=== PATIENT | female | born 1935 | race Caucasian/White ===

== ENCOUNTER 2018-09-06 17:53 | Emergency (ER) | payer MEDICARE, SELFPAY ==
[2018-09-06 17:54] VITALS: BP 155/68; PULSE 70; RESP 16; TEMP 36.4; O2SAT 93; BMI 40.4
--- NOTE | 2018-09-06 18:50 | RAD_ITS ---
STUDY: X-RAY - LEFT HAND REASON FOR EXAM: Female, 82 years old. Fall and laceration of thumb TECHNIQUE: 3 view(s) of the hand. COMPARISON: None. FINDINGS: No fractures are seen. No dislocations. No radiodense foreign bodies. Diffuse osteoarthritis. This includes severe first carpometacarpal and first metacarpophalangeal osteoarthritis with subluxation. RAD/Hand Min 3 Views IMPRESSION: No acute osseous injury is evident. No radiodense foreign body is seen. Electronically Signed: Alphonse Jack MD at 19:08 EDT Tel , Service support ,
[2018-09-06] MEDS: Diphth,Pertuss(Acell),Tet Vac 0.5 ML Vial IM (18:53)
[2018-09-06 20:17] VITALS: BP 145/65; PULSE 64; RESP 15; O2SAT 97
--- NOTE | 2018-09-06 20:17 | ED.DEP ---
ED Disposition - Plan for ED Patient: Instructions: LACERATION, Hand Referrals: Marion Elizabeth MD [Primary Care Provider] -
--- NOTE | 2018-09-06 20:21 | ED.VISSUMM ---
- ER Visit Summary Date of Service: 09/06/18 Chief Complaint: Left hand laceration History of Present Illness: The patient is a 82 F presenting with left hand laceration. Patient states that she was walking outside and fell off a curb. She landed on both of her hands. She did not hit her head or lose consciousness. She had no symptoms before the fall. She is not on anticoagulants. She was able to ambulate after the fall. She has a laceration to her left hand. Last tetanus is unknown. No other injuries. Physical Examination: Vitals are stable. Patient is afebrile. Alert no acute distress. HEENT exam is unremarkable. Neck is supple. Lungs are clear and equal bilaterally. Heart is regular rate and rhythm. Abdomen is soft nontender nondistended. Extremities 2 cm laceration left proximal thumb. Tendon function is intact. Normal cap refill. Normal sensation. Wrist is nontender. Skin is warm and dry. No focal neurologic deficit. Remainder of exam is unremarkable. Emergency Department Course and Treatment: Left hand xray shows no acute osseous injury is evident. No radiodense foreign body is seen. Wound was irrigated. Anesthetized with lidocaine. 5, 5-0 simple sutures were placed. Patient tolerated this well. Advised wound care instructions. Advised follow-up with primary care physician. Advised return to ED if worsening complaints. Disposition: Discharge home Impression: Left hand laceration, laceration repair This note was generated with [employer] dictation software. It may contain incorrect words, spelling, and punctuation that were not noted in review of the chart prior to signing ED Disposition - Plan for ED Patient: Instructions: LACERATION, Hand Referrals: Marion Elizabeth MD [Primary Care Provider] -
== END 2018-09-06 20:30 | disposition home or self-care (01) ==
LOC: ED 19:17
PROVIDERS: Emergency Provider Emergency Medicine; Family Provider Internal Medicine; PCP Internal Medicine
DX: S61.412A Laceration without foreign body of left hand, initial encounter (principal); W10.1XXA Fall (on)(from) sidewalk curb, initial encounter; Y93.01 Activity, walking, marching and hiking; Y92.9 Unspecified place or not applicable; I10 Essential (primary) hypertension; Z79.899 Other long term (current) drug therapy
CPT/HCPCS: 12001; 73130; 90471; 90715; 99284